=== PATIENT | female | born 1960 | race Caucasian/White ===

== ENCOUNTER → 2022-07-11 | Outpatient (CLI) | payer OTHER ==
--- NOTE | 2022-07-11 19:10 | DIREP ---
PROCEDURE:CHEST 2 VIEWS COMPARISON:None. INDICATIONS:COUGH FINDINGS: LUNGS/PLEURA:Mild eventration right hemidiaphragm. No focal consolidation or pleural effusions. Mild pulmonary hyperinflation. VASCULATURE:Normal. Unremarkable pulmonary vasculature. CARDIAC:Normal. No cardiac silhouette abnormality or cardiomegaly. MEDIASTINUM:Normal. No visible mass or adenopathy. BONES:Normal. No fracture or visible bony lesion. OTHER:Negative. CONCLUSION:Mild pulmonary hyperinflation without evidence for acute cardiopulmonary disease. Dictated by: Dom Albert MD on 07/11/2022 at 07:07 PM
== END | disposition home or self-care (01) ==
LOC: RAD 18:33
PROVIDERS: ATTEND Nurse Practitioner Family
DX: J98.11 Atelectasis (principal)
CPT/HCPCS: 71046